=== PATIENT | female | born 1985 | race Caucasian/White ===

== ENCOUNTER → 2022-06-25 | Outpatient (CLI) | payer OTHER, SELFPAY ==
[2022-06-25 16:59] LABS: Absolute Neutrophil Count 4.1 X10^3/uL (2.0-7.7); Basophil# 0.02 X10^3/uL; Basophil% 0.3 % (0-1); Eosinophil# 0.15 X10^3/uL; Eosinophils% 2.3 % (0-5); Hematocrit 32.2 % (37-47); Hemoglobin 9.4 g/dL (12.0-15.0); Lymphocyte % 29.3 % (19-41); Mean Corp Hgb Conc 29.2 g/dL (32-36); Mean Corpuscular Hgb 23.6 pg (27.0-32.0); Mean Corpuscular Volume 80.7 fL (81-99); Mean Platelet Vol. 9.7 fl (6.2-12.0); Monocyte# 0.34 X10^3/uL; Monocyte% 5.2 % (0-10); NRBC Flagged by Analyzer 0 % (0-5); Neutrophil # 4.07 X10^3/uL (2.7-7.7); Neutrophil % 62.7 % (47-70); Platelet Count 236 K/mm3 (150-450); RBC Distribution Width CV 16.9 % (11.6-14.6); RBC Distribution Width SD 49.6 fl (35.1-43.9); Red Blood Count 3.99 M/mm3 (4.2-5.4); White Blood Count 6.5 K/mm3 (4.4-11.0)
[2022-06-25 17:15] LABS: Erythrocyte Sedimentation Rate 28 mm/hr (0-30)
[2022-06-25 17:31] LABS: Hemoglobin A1c 5.5 % (3.8-5.6)
[2022-06-25 17:33] LABS: ALB/GLOB Ratio 0.9 RATIO (0.9-2.4); AST(SGOT) 19 U/L (15-37); Alanine Aminotransfer ALT/SGPT 25 U/L (13-56); Albumin, Serum 3.4 g/dL (3.2-5.0); Alkaline Phosphatase 76 U/L (45-117); Anion Gap 6 (5-15); BUN 13 mg/dL (7-18); BUN/Creat Ratio 19.1 RATIO (10-20); Calcium,Total 8.5 mg/dL (8.5-10.1); Chloride 108 mmol/L (98-107); Creatinine, Serum 0.68 mg/dL (0.55-1.02); EST Glomerular Filtration Rate 104 mL/min (>60); Est Glom Filt Rate - Afr Amer 126 mL/min (>60); Globulin 3.7 g/dL (2.2-4.2); Glucose 113 mg/dL (74-106); Potassium 3.8 mmol/L (3.5-5.1); Protein, Total 7.1 g/dL (6.4-8.2); Sodium Level 141 mmol/L (136-145); Thyroid Stim Hormone (TSH) 1.63 uIU/mL (0.358-3.74)
[2022-06-26 08:11] LABS: CPK Total, Creatine Kinase 218 U/L (26-192)
== END | disposition home or self-care (01) ==
PROVIDERS: PCP Nurse Practitioner Family; Referring Provider Nurse Practitioner Family; Visit Provider Nurse Practitioner Family
DX: R55 Syncope and collapse (principal)
CPT/HCPCS: 36415; 80053; 82550; 82552; 83036; 84443; 85025; 85652; 86140

== ENCOUNTER → 2022-06-27 | Outpatient (CLI) | payer OTHER, SELFPAY ==
[2022-06-27 18:49] LABS: Iron Binding Capacity,Total 361 ug/dL (250-450)
== END | disposition home or self-care (01) ==
LOC: LAB 16:14
PROVIDERS: PCP Nurse Practitioner Family; Visit Provider Nurse Practitioner Family
DX: D64.9 Anemia, unspecified (principal)
CPT/HCPCS: 36415; 83550

== ENCOUNTER → 2022-07-05 | Outpatient (CLI) | payer OTHER, SELFPAY ==
--- NOTE | 2022-07-05 14:57 | ECHOD_ITS ---
Reason For Study: Syncope and Collapse Procedure This was a 2D Doppler, Color Flow transthoracic echocardiogram. Exam performed in department. Left Ventricle Normal LV size. Mild concentric left ventricular hypertrophy. Left ventricular systolic function is normal. The estimated ejection fraction is 60 %. Stage 1 diastolic dysfunction. No regional wall motion abnormalities noted. Right Ventricle Normal RV size. Normal systolic function. Atria Normal left atrium. Normal right atrium. Mitral Valve Normal mitral valve. Mild (1+) eccentric mitral valve insufficiency. Tricuspid Valve Normal tricuspid valve. Mild tricuspid valve insufficiency. Pulmonary artery systolic pressure is 40 mmHg. Aortic Valve Normal aortic valve. Trisinus/trileaflet aortic valve. Pulmonic Valve Normal pulmonic valve. Great Vessels Normal aortic root. The pulmonary artery is normal size. Pericardium/Pleural No pericardial effusion. MMode/2D Measurements & Calculations LVIDd: 6.2 cm IVSd: 1.2 cm Ao root diam: 2.9 cm LVIDs: 3.8 cm LVPWd: 1.2 cm RVDd: 3.6 cm FS: 38.0 % LAV(MOD-bp): 77.3 ml LVAd ap4: 36.1 cm2 LVAd ap2: 36.1 cm2 LAV(MOD-bp) Indexed: 27.0 ml/m2 LVLd ap4: 8.7 cm LVLd ap2: 8.6 cm LAV(MOD-sp2): 67.1 ml EDV(MOD-sp4): 125.5 ml EDV(MOD-sp2): 127.6 ml LAV(MOD-sp4): 87.2 ml EDV(sp4-el): 127.5 ml EDV(sp2-el): 129.1 ml LVAs ap4: 18.0 cm2 LVAs ap2: 20.8 cm2 LVLs ap4: 6.7 cm LVLs ap2: 6.8 cm ESV(MOD-sp4): 43.5 ml ESV(MOD-sp2): 55.6 ml ESV(sp4-el): 40.8 ml ESV(sp2-el): 53.6 ml EF(MOD-sp4): 65.3 % EF(MOD-sp2): 56.4 % EF(sp4-el): 68.0 % SV(MOD-sp4): 82.0 ml SV(MOD-sp2): 72.0 ml SV(sp4-el): 86.7 ml LA dimension(2D): 4.7 cm LA A4 area: 25.4 cm2 RA A4 area: 14.5 cm2 Time Measurements MV dec time: 0.20 sec Doppler Measurements & Calculations MV E max cheikh: 102.3 cm/sec Lat Peak E' Cheikh: 13.1 cm/sec Med Peak E' Cheikh: 10.4 cm/sec MV A max cheikh: 110.3 cm/sec E/E' lat: 7.8 E/E' med: 9.8 MV E/A: 0.93 MV dec slope: 511.2 cm/sec2 Ao V2 max: 186.9 cm/sec LV V1 max: 154.3 cm/sec Ao max P.0 mmHg LV V1 max P.5 mmHg Ao V2 mean: 139.0 cm/sec Ao mean P.3 mmHg Ao V2 VTI: 40.2 cm PA V2 max: 113.4 cm/sec TR max cheikh: 305.9 cm/sec TR max P.4 mmHg ECHO/Echo Complete Interpretation Summary Normal LV size. Left ventricular systolic function is normal. The estimated ejection fraction is 60 %. Mild (1+) eccentric mitral valve insufficiency. Stage 1 diastolic dysfunction. Mild concentric left ventricular hypertrophy. Ordering Physician: Tegan Flor Referring Physician: Tegan Flor Performed By: Anna Mario, CATHY, RVT
== END | disposition home or self-care (01) ==
LOC: CVS 14:56
PROVIDERS: PCP Nurse Practitioner Family; Visit Provider Nurse Practitioner Family
DX: R55 Syncope and collapse (principal)
CPT/HCPCS: 93306

== ENCOUNTER → 2022-07-16 | Outpatient (CLI) | payer OTHER, SELFPAY ==
--- NOTE | 2022-07-16 10:03 | TELEMED_ITS ---
[facility] has confirmed receipt of a request for visit. This document confirms receipt of the order initiating the consult. To find the results of the consultation, please view the patient's reports for the scanned Telemed Consult.
== END | disposition home or self-care (01) ==
LOC: PSN 08:33
PROVIDERS: PCP Nurse Practitioner Family; Visit Provider Nurse Practitioner Family
DX: R55 Syncope and collapse (principal)
CPT/HCPCS: 93225; 93226; 95819

== ENCOUNTER 2023-02-27 16:52 | Emergency (ER) | payer MEDICAID, SELFPAY ==
[2023-02-27 16:53] VITALS: BP 173/108; PULSE 89; RESP 17; TEMP 36.4; O2SAT 98; BMI 55.5
--- NOTE | 2023-02-27 18:19 | CT_ITS ---
STUDY: CT ABDOMEN AND PELVIS WITH CONTRAST REASON FOR EXAM: Female, 37 years old. LLQ abdominal pain RADIATION DOSAGE (If Supplied By Facility): CTDIvol = ( 40.91 ) mGy, DLP = ( 2018.64 ) mGycm TECHNIQUE: Transaxial images were obtained from the dome of the diaphragm to the symphysis pubis without oral contrast. IV 100mL Isovue-370 was administered. Sagittal and coronal images were reconstructed. Individualized dose optimization techniques were used for this CT. COMPARISON: None. FINDINGS: Minor bibasilar interstitial thickening and emphysematous changes in the lower lobes. The visualized portions of the heart are within normal limits. Normal liver. Tiny calcific gallstone without acute inflammation. Normal spleen. Normal pancreas. Normal bilateral adrenal glands. No evidence for renal obstruction. Small right renal simple cyst which will not require additional imaging. Normal left kidney. Normal visualized stomach. Normal small intestine. Normal colon. The appendix is visualized and appears normal. Normal abdominal aorta. Normal inferior vena cava. Normal retroperitoneum. Markedly enlarged uterus which appears heterogeneous measuring approximately 22 x 13 x 17 cm depressing the bladder which is poorly distended thick walled. There is also a very large cystic in the mass cul-de-sac extending anteriorly towards the left measuring approximately 15 x 11 cm likely ovarian compressing the rectum. Normal abdominal wall. Normal osseous structures. CT/Abdomen/Pelvis W IV Cont ONLY IMPRESSION: Cholelithiasis without evidence for acute cholecystitis. Markedly enlarged uterus likely representing intrauterine fibroids in association with a very large cystic mass likely ovarian. Electronically Signed: Rian Bosch MD at 19:46 EDT ,
--- NOTE | 2023-02-27 18:20 | EDS_ITS ---
HPI HPI - GI History of Present Illness Chief Complaint: Abd Pain Detail of Chief Complaint: Abdominal pain Informant: patient Abdominal Pain/Flank Pain Current Severity: 12/16 Narrative Narrative: Patient presents to the emergency department with complaint of left-sided abdominal pain that became worse this morning when she woke up around 1030. She started moving around and fell back into bed because of severe pain in the lower left side. Pain seems to be made worse by moving. She had 2 episodes of nausea and vomiting. Patient tells me that she had an ultrasound of her pelvic organs in January that showed an 18 cm cyst in her left ovary. Patient was referred to [facility] [employer] at [facility] however they would not take her case and referred her to a surgeon up in [place]. Patient does not have an appointment to see the surgeon yet. Patient denies any fevers or chills or sweats. She denies urinary symptoms. Patient also with history of ulcerative colitis but has not had any blood in her stools or any of the typical flareup symptoms. [facility] Medical History (Updated 02/27/23 @ 22:[address] Lizabeth Lobato, ) Anemia Anxiety Corneal transplant infection of left eye (~08/16/22) PCOS (polycystic ovarian syndrome) Ulcerative colitis Home Medications hydrocodone-acetaminophen 5-325mg 5mg-325mg 1 tab PO Q4H PRN PRN Pain 2 days #10 TABLETS 02/27/23 [Rx Last Taken Unknown] Allergy/AdvReac Type Severity Reaction Status Date / Time amoxicillin [From Augmentin] AdvReac Abd Verified 02/27/23 16:53 cramps/diarrhea clavulanic acid AdvReac Abd Verified 02/27/23 16:53 [From Augmentin] cramps/diarrhea iron AdvReac Abd Verified 02/27/23 16:53 cramps/diarrhea Social History Smoking Status: Former smoker ROS ROS ED Review of Systems ROS Unobtainable: other Constitutional Constitutional ED: Reports lethargy; Denies chills, fever(s), sweats or weight loss Eyes Eyes: Denies blurry vision, change in vision or diplopia ENT ENT ED: Denies rhinorrhea or sore throat Cardiovascular Cardiovascular: Denies chest pain, orthopnea or racing heartbeat Respiratory/Chest Respiratory/Chest: Denies cough, dyspnea, dyspnea on exertion, orthopnea or sputum Gastrointestinal Gastrointestinal: Reports abdominal pain, nausea and vomiting; Denies diarrhea Genitourinary Genitourinary ED: Denies dysuria, hematuria or urinary frequency Musculoskeletal Musculoskeletal: Denies arthralgias, back pain, myalgias or neck pain Integumentary Denies abscess, Abrasions or rash Neurologic Neurologic: Denies headache(s) or weakness Psychiatric Psychiatric: Denies anxiety, depression or suicidal thoughts Endocrine Endocrinology: Denies polydipsia, polyphagia or polyuria Hematologic/Lymphatic Hematologic/Lymphatic: Denies easy bleeding, easy bruising or lymphadenopathy Allergic/Immunologic Allergic/Immunologic ED: Denies mouth swelling, tongue swelling or urticaria EXAM Physical Exam Const Vital Signs: 02/27/23 16:53 02/27/23 22:32 Temperature 97.5 F L Temperature Source Temporal Pulse Rate 89 86 Respiratory Rate 17 14 Blood Pressure 173/108 H 157/99 H Blood Pressure Mean 129 Pulse Ox 98 97 Oxygen Delivery Method Room Air Positive well nourished and well developed General Appearance ED: well developed and NAD HEENT Reports TM's clear and moist mucous membranes normocephalic and atraumatic; Negative for trauma or tenderness Tympanic Membrane ED: Yes TM's clear Eyes PERRL and EOMs intact bilaterally General Eye ED: Negative for pale conjunctiva or scleral icterus Neck no lymphadenopathy, supple and no JVD General: Negative for tenderness Chest Wall inspection of chest normal and palpation of chest normal Chest: Negative for tenderness Resp normal respiratory effort and clear to auscultation bilaterally Effort and Inspection: Negative for respiratory distress or pain with movement Auscultation: Negative for rhonchi, wheezes or diminished lung sounds Cardio regular rate, regular rhythm, S1 normal heart sound, S2 normal heart sound and no murmurs Peripheral Pulses: pulses 2+ throughout GI normal to inspection, nondistended, normoactive bowel sounds, soft to palpation, non-distended and no masses GI Narrative: Patient morbidly obese. She has diffuse tenderness over the left lower quadrant and left upper quadrant. There is guarding. There is no rebound, rigidity, or peritoneal signs. No masses palpated. Back/Spine no CVA tenderness and no thoracic nor lumbar tenderness Extremity normal to inspection General Extremety ED: Negative for edema General Extremity: Negative for edema Neuro oriented x3, CN's II-XII intact bilaterally, no sensory deficits noted and gait normal Sensorium / Orientation: awake, alert, oriented to person, oriented to place and oriented to time Motor Exam: strength 5/5 throughout and strength abnormal Psych mental status grossly normal Skin no rashes or lesions noted and no wounds MDM MDM MDM Narrative Medical decision making narrative: Patient presents with abdominal pain with known large ovarian cyst. Increased pain today. In the differential would be ovarian torsion versus bowel obstruction or UTI or kidney stone. Ectopic would be in the differential although I think this is less likely as she has had a uterine ablation. IV line established. Patient was medicate with Toradol. CBC with differential showed a white of 7.0 with hemoglobin 10.8 and platelet count of 247. Chemistries unremarkable. hCG was negative. This was normal. CT scan of the abdomen pe lvis obtained showed cholelithiasis without evidence of cholecystitis and markedly enlarged uterus likely representing fibroid uterus and a large left ovarian cyst. Patient also had a pelvic ultrasound to rule out torsion and this showed a large ovarian cyst with normal flow to the ovary. This point patient will be discharged to home. She is advised to follow-up with surgeon up in [place]. Patient given a prescription for [place] for pain. Discharged home stable condition. Lab Data Attestation: I reviewed the patient's lab results. Labs: Laboratory Results - last 24 hr 02/27/23 02/27/23 18:34 19:47 WBC 7.0 RBC 4.35 Hgb 10.8 L Hct 36.7 L MCV 84.4 MCH 24.8 L MCHC 29.4 L RDW Std Deviation 49.4 H RDW Coeff of Aniceto 16.1 H Plt Count 247 MPV 10.2 Immature Gran % (Auto) 0.100 Neut % (Auto) 59.8 Lymph % (Auto) 28.5 [place] % (Auto) 6.2 Eos % (Auto) 5.0 Baso % (Auto) 0.4 Absolute Neuts (auto) 4.2 Absolute Lymphs (auto) 1.99 Nucleated RBC % 0 Sodium 138 Potassium 4.0 Chloride 109 H Carbon Dioxide 25.0 Anion Gap 4 L BUN 14 Creatinine 0.71 Estim Creat Clear Calc 126.41 Est GFR (MDRD) Af Amer 120 Est GFR (MDRD) Non-Af 99 BUN/Creatinine Ratio 19.8 Glucose 163 H Lactic Acid 1.3 Calcium 9.0 Serum , Qual NEGATIVE Urine Color Yellow Urine Clarity Clear Urine pH 5.0 Ur Specific [place] 1.020 Urine Protein 30 H Urine Glucose (UA) Normal Urine Ketones Negative Urine Occult Blood 10 H Urine Nitrite Negative Urine Bilirubin Negative Urine Urobilinogen 1 H Ur Leukocyte Esterase 25 H Urine RBC 0 SEEN Urine WBC 0-5 SEEN Ur Squamous Epith Cells 0-5 SEEN Urine Bacteria 0 SEEN Urine Mucus 0 SEEN Radiography Diagnostic Testing: Clinical Impression(s) from Imaging Studies Abdomen/Pelvis CT 02/27/23 18:19 IMPRESSION: Cholelithiasis without evidence for acute cholecystitis. Markedly enlarged uterus likely representing intrauterine fibroids in association with a very large cystic mass likely ovarian. Electronically Signed: Rian Bosch MD at 19:46 EDT , Pelvis Ultrasound 02/27/23 19:39 IMPRESSION: Large uterus with multiple intrauterine fibroids. Very large left ovarian cyst without evidence for torsion. Findings as above Electronically Signed: Rian Bosch MD at 20:55 EDT , Discharge Plan Triage Chief Complaint: Abd Pain ED Provider: Lizabeth Lobato Dx/Rx/DC Orders Clinical Impression: Ovarian cyst, Abdominal pain Instructions: ED Abdominal Pain Unkn Cause Fem, ED Ovarian Cyst Prescriptions: New hydrocodone-acetaminophen [hydrocodone-acetaminophen] 5-325 mg tablet 1 tab PO Q4H PRN PRN (Reason: Pain) 2 Days Qty: 10 0RF Primary Care Provider: Tegan Flor NP Referrals: Tegan Flor NP, [facility] [Primary Care Provider] - Activity Restrictions/Additional Instructions: Follow-up with surgeons in [place] regarding your ovarian cyst. Disposition Disposition: Home, Self Care Discharge Date/Time: 02/27/23 22:35
[2023-02-27] MEDS: Ketorolac 30 MG/ML Syringe IV (18:33)
[2023-02-27] MEDS: 0.9% Normal Saline (1000mL) 1,000 ML 125 ML IV (18:33)
[2023-02-27 18:50] LABS: Absolute Lymphocyte Count 1.99 X10^3/uL (0.83-4.51); Absolute Neutrophil Count 4.2 X10^3/uL (2.0-7.7); Basophil# 0.03 X10^3/uL; Basophil% 0.4 % (0-1); Eosinophil# 0.35 X10^3/uL; Hematocrit 36.7 % (37-47); Hemoglobin 10.8 g/dL (12.0-15.0); Lymphocyte # 1.99 X10^3/ul (0.83-4.51); Lymphocyte % 28.5 % (19-41); Mean Corp Hgb Conc 29.4 g/dL (32-36); Mean Corpuscular Hgb 24.8 pg (27.0-32.0); Mean Corpuscular Volume 84.4 fL (81-99); Mean Platelet Vol. 10.2 fl (6.2-12.0); Monocyte# 0.43 X10^3/uL; Monocyte% 6.2 % (0-10); NRBC Flagged by Analyzer 0 % (0-5); Neutrophil # 4.18 X10^3/uL (2.7-7.7); Neutrophil % 59.8 % (47-70); Platelet Count 247 K/mm3 (150-450); RBC Distribution Width CV 16.1 % (11.6-14.6); RBC Distribution Width SD 49.4 fl (35.1-43.9); Red Blood Count 4.35 M/mm3 (4.2-5.4)
[2023-02-27 19:09] LABS: Anion Gap 4 (5-15); BUN 14 mg/dL (7-18); BUN/Creat Ratio 19.8 RATIO (10-20); Chloride 109 mmol/L (98-107); Creatinine, Serum 0.71 mg/dL (0.55-1.02); EST Glomerular Filtration Rate 99 mL/min (>60); Est Glom Filt Rate - Afr Amer 120 mL/min (>60); Estimated Creatinine Clearance 126.41 ml/min; Glucose 163 mg/dL (74-106); Internal QC Validated? YES +Cl - CLEAR BKGD; Pregnancy, Serum, hCG Quali. NEGATIVE Negative; Sodium Level 138 mmol/L (136-145)
[2023-02-27 19:17] LABS: Lactic Acid 1.3 mmol/L (0.4-1.9)
--- NOTE | 2023-02-27 19:39 | US_ITS ---
STUDY: ULTRASOUND OF THE FEMALE PELVIS - COMPLETE REASON FOR EXAM: Female, 37 years old. ovarian mass, rule out torsion LMP: TECHNIQUE: Transabdominal and transvaginal TECHNICAL QUALITY: Adequate. COMPARISON: None. FINDINGS: The uterus is anteverted and is in a midline position. The uterus measures 18.7 x 17.2 x 14 cm. Normal uterine cervix. The endometrial lining is not visualized There is no demonstrated endometrial mass. Multiple large fibroids the largest measuring 10.5 x 11 x 10.4 cm and 8.6 x 9.9 x 4.3 cm. I.U.D. - The patient does not have an I.U.D. Normal right ovary not clearly visualized. There is no adnexal mass.. Left ovary is enlarged measuring 20.8 x 10.4 x 9.4 cm and demonstrates a cyst measuring 19.9 x 9.3 x 8.2 cm. There is arterial flow noted.. There is no fluid in the cul-de-sac. US/Pelvic (Non ) IMPRESSION: Large uterus with multiple intrauterine fibroids. Very large left ovarian cyst without evidence for torsion. Findings as above Electronically Signed: Rian Bosch MD at 20:55 EDT ,
[2023-02-27 20:10] LABS: Bacteria 0 SEEN /hpf (None Seen); Color, Urine Yellow (Yellow); Glucose, Dipstick Normal (Normal); Ketone-Dipstick Negative (Negative); Leukocyte Esterase-Dipstick 25 /ul (Negative); Mucous, Urine 0 SEEN /hpf (<or=2+); Nitrite-Dipstick Negative (Negative); Occult Blood-Urine 10 /ul (Negative); Protein-Dipstick 30 mg/dl (Negative); Red Blood Cells-Urine 0 SEEN /hpf (0-5); Urine Bilirubin Dipstick Negative (Negative); Urine Clarity Clear (Clear); Urine Urobilinogen 1 mg/dl (Normal)
[2023-02-27 20:19] LABS: Squamous Epithelial Cells - UA 0-5 SEEN /hpf (5-10); White Blood Cells 0-5 SEEN /hpf (0-5)
[2023-02-27 22:32] VITALS: BP 157/99; PULSE 86; RESP 14; O2SAT 97
== END 2023-02-27 22:35 | disposition home or self-care (01) ==
PROVIDERS: Emergency Provider Emergency Medicine; PCP Nurse Practitioner Family; Visit Provider Emergency Medicine
DX: R10.9 Unspecified abdominal pain (principal); N83.202 Unspecified ovarian cyst, left side; Z87.891 Personal history of nicotine dependence
CPT/HCPCS: 74177; 76856; 80048; 81001; 83605; 84703; 85025; 96361; 96374; 99283; J7030; Q9967; A4216